=== PATIENT | female | born 1980 | race Caucasian/White ===

== ENCOUNTER 2018-02-06 08:41 | Emergency (ER) | payer MEDICARE ==
[~2018-02-06] VITALS: Ht 167.6 cm; Wt 125.1 kg
[~2018-02-06 08:41] MED LIST: CELEBREX200 MG PO; CLEOCIN300 MG PO; Flintstones PO; IRON325 M1 PO; Levothroid,Synthroid PO; Natalcare Rx,Pramile PO; PriLOSEC PO; THERA-M CAPLET1 EACH PO; Tylenol Regular Stre PO; VITAMIN B12-FO1 EACH PO; Vicodin,Lortab 5/500 PO; Vitamin D, Drisdol PO
[2018-02-06 10:01] LABS: HEMOGLOBIN 9.8 G/DL (11.9-15.5); MCH 20.8 PG (29.0-34.0); MCHC 29.7 G/DL (30.0-36.0); MCV 69.9 FL (83-99); PLATELET COUNT 336 K/uL (156-360); RBC DIS.WIDTH-CV 18.1 % (11.8-14.6); RBC DIS.WIDTH-SD 44.3 % (39-53); RED BLOOD COUNT 4.72 M/uL (3.80-5.20); WHITE BLOOD COUNT 7.2 K/uL (4.1-10.2)
[2018-02-06 10:21] LABS: ALBUMIN 4.1 G/DL (3.2-4.8); ALKALINE PHOSPHATASE 112 IU/L (3-129); ALT (GPT) 15 IU/L (3-49); AST (GOT) 25 IU/L (2-34); CHLORIDE 110 MEQ/L (99-109); CREATININE 0.6 MG/DL (0.6-1.3); GFR ESTIMATE (CALCULATED) > 59 mL/min/; GLUCOSE 110 mg/dL (70-99); LIPASE 19 U/L (1.0-51.0); POTASSIUM 4.5 MEQ/L (3.7-5.4); SODIUM 139 MEQ/L (136-147); TOTAL BILIRUBIN 0.6 MG/DL (0.0-1.0); TOTAL PROTEIN 6.3 G/DL (6.4-8.3); UREA NITROGEN (BUN) 12 mg/dL (9-23)
[2018-02-06] MEDS ORDERED: FLAGYL500 MG PO (12:21)
[2018-02-06] MEDS ORDERED: NORCO 5/3251 TABLET PO (12:21)
[2018-02-06] MEDS ORDERED: CIPRO500 MG PO (12:21)
[2018-02-06] MEDS ORDERED: ZOFRAN ODT4 MG PO (12:21)
[2018-02-06 13:45] VITALS: BP 138/69
== END 2018-02-06 13:45 | disposition home or self-care (01) ==
LOC: EME 08:41
PROVIDERS: Nurse Practitioner Family
DX: K52.9 Noninfective gastroenteritis and colitis, unspecified (principal); K57.30 Diverticulosis of large intestine without perforation or abscess without bleeding; Z98.84 Bariatric surgery status; Z87.891 Personal history of nicotine dependence; K21.9 Gastro-esophageal reflux disease without esophagitis; Z88.1 Allergy status to other antibiotic agents; Z88.5 Allergy status to narcotic agent
CPT/HCPCS: 74177; 80053; 83690; 85027; 99281; 99285; J2405; J3010; J7030